=== PATIENT | female | born 1985 | race Caucasian/White ===

== ENCOUNTER → 2022-07-20 13:08 | Outpatient (BNVA) | payer BC, SELFPAY | PROVIDERS: Visit Provider Nurse Practitioner Family | DX: J22 Unspecified acute lower respiratory infection (principal); B96.89 Other specified bacterial agents as the cause of diseases classified elsewhere | CPT/HCPCS: 71046 ==

== ENCOUNTER → 2023-07-26 13:35 | Outpatient (BNVA) | payer BC, SELFPAY | PROVIDERS: Visit Provider Nurse Practitioner | DX: R53.83 Other fatigue (principal) | CPT/HCPCS: 80053; 84443; 85025 ==